=== PATIENT | female | born 1930 | race Caucasian/White ===

== ENCOUNTER 2017-11-17 22:56 | Observation (INO) ==
[2017-11-17] MEDS ORDERED: methylPREDNISolone 125 MG/2 ML VIAL IVP ONE (23:09)
[2017-11-17] MEDS ORDERED: Ipratropium/Albuterol Neb 3 ML IH ONE (23:09)
[2017-11-17 23:39] LABS: Basophils # 0.1 K/mcL (0.0-0.2); Basophils % 0.6 %; Eosinophils # 0.2 K/mcL (0.0-0.6); Eosinophils % 1.7 %; Hematocrit 39.5 % (35.3-44.9); Hemoglobin 12.6 g/dL (11.5-15.4); Immature Granulocytes % 0.4 % (0-4); Lymphocytes # 1.1 K/mcL (0.6-4.6); Lymphocytes % 9.7 %; Mean Corpuscular HGB Conc 31.9 g/dL (31.6-35.5); Mean Corpuscular Hemoglobin 30.3 pg (28.0-33.3); Mean Platelet Volume 11.8 fL (9.4-12.4); Monocytes # 0.4 K/mcL (0.0-1.3); Monocytes % 3.7 %; Platelet Count 152 K/mcL (140-400); Red Blood Count 4.16 M/mcL (3.82-4.97); Red Cell Distribution Width 14.1 % (11.5-14.5); Segmented Neutrophils % 83.9 %
[2017-11-17 23:46] LABS: Neutrophils # 9.7 K/mcL (1.6-8.9)
[2017-11-17] MEDS ORDERED: Furosemide 40 MG/4 ML VIAL IVP ONE (23:51)
[2017-11-17 23:58] LABS: BUN/Creatinine Ratio 13 (6-26); Blood Urea Nitrogen 20 mg/dL (8-23); Calcium 8.5 mg/dL (8.6-10.3); Carbon Dioxide 24 mEq/L (23-29); Chloride 101 mEq/L (98-107); Glucose 188 mg/dL (70-105); Osmolality,Calculated 286 (280-300); Potassium 3.8 mEq/L (3.5-5.1); Sodium 134 mEq/L (136-145); eGFR For African Americans 39 (> 60); eGFR For Non-African Americans 32 (> 60)
[2017-11-17 23:59] LABS: Troponin I < 0.03 ng/mL (< 0.04)
--- NOTE | 2017-11-18 | Emergency Department Note ---
Disposition Clinical Impression: Hypoxia Congestive heart failure Qualifiers: Heart failure type: unspecified Heart failure chronicity: acute on chronic Qualified Code(s): I50.9 - Heart failure, unspecified Disposition: Admitted As Inpatient Condition: Fair Referrals: Danyell Tang DO [Primary Care Provider] - Forms: ED Satisfaction Letter Time of Disposition: 00:06 SOB HPI - General Chief Complaint: ED Shortness of Breath/Dyspnea Stated Complaint: difficulty breathing Time Seen by Provider: 11/17/17 23:05 Source: patient, family, EMS Mode of arrival: EMS Limitations: no limitations Nursing Notes Reviewed: Yes Vital Signs Reviewed: Yes - History of Present Illness Pt Subjective Complaint: shortness of breath Onset (ago): hour(s) (Patient became acutely short of breath over the past couple of hours prior to arrival but does report some shortness of breath over the past 3-4 days that has been progressively worsening.) Context: other (Patient was seen here little more than a week ago for congestive heart failure and was given some Lasix and treated on an outpatient basis. She did better but then over the past couple of days started going back down hill again) Severity: severe Consistency/Duration: constant, gradually worsening Improves with: oxygen Worsens with: lying flat, exertion Known history of: congestive heart failure Associated symptoms: Denies: chest pain, fever Treatment prior to arrival: NIPPV - Related Data Home oxygen amount: 2 liters Home Medications Medication Instructions Recorded Confirmed Aspirin 81 mg PO DAILY 05/15/16 11/17/17 Carvedilol 3.125 mg PO BID 05/15/16 11/17/17 Furosemide [Lasix] 20 mg PO QPM 05/15/16 11/17/17 LORazepam [Ativan] 0.5 mg PO BID 05/15/16 11/17/17 Lisinopril [Zestril] 5 mg PO DAILY 05/15/16 11/17/17 Nitroglycerin [Nitrostat] 0.4 mg SL AD PRN 05/15/16 11/17/17 Potassium Chloride [K-Tab ER] 20 meq PO DAILY 05/15/16 11/17/17 Ranitidine HCl [Heartburn Relief] 150 mg PO BID 05/15/16 11/17/17 Simvastatin [Zocor] 20 mg PO DAILY 05/15/16 11/17/17 Buspirone HCl [Buspar] 10 mg PO DAILY 11/17/17 11/17/17 Previous Rx's Medication Instructions Recorded Clopidogrel Bisulfate [Plavix] 75 mg PO DAILY #0 06/18/17 Furosemide [Lasix] 40 mg PO DAILY #7 tablet 11/08/17 Allergies Allergy/AdvReac Type Severity Reaction Status Date / Time Penicillins [PCN] Allergy Hives Verified 11/17/17 23:14 Sulfa (Sulfonamide Allergy Hives Verified 11/17/17 23:14 Antibiotics) All systems ED: reviewed and negative except as stated. Constitutional: Denies: fever, chills ENT ED: Denies: ear pain, throat pain, congestion Cardiovascular: Reports: dyspnea on exertion, paroxysmal nocturnal dyspnea. Denies: chest pain, palpitations Respiratory: Reports: dyspnea, wheezes Gastrointestinal: Denies: abdominal pain, nausea, vomiting, diarrhea Genitourinary: Denies: urgency, dysuria, frequency Integumentary: Denies: rash Neurological: Denies: headache Past Medical History - Past Medical History Attestation: Yes The following information was validated with the patient. Source: patient, old records reviewed, obtained from family, nursing notes reviewed Medical history: Reports: CHF, COPD, coronary artery disease, CVA, dementia, diabetes, hyperlipidemia, hypertension, myocardial infarction, valvular heart disease Surgical history: Reports: appendectomy, cholecystectomy, hysterectomy, other Psychiatric history: Reports: anxiety, depression - Social History Smoking Status: Former smoker Smokeless Tobacco Status: No Alcohol use: Reports: none Drug use: Reports: none Physical Exam - General Limitations: no limitations General appearance: alert - Head Head exam: atraumatic, normocephalic, normal inspection - Eye Eye exam: Present: normal appearance, PERRL, EOMI. Absent: scleral icterus, conjunctival injection - ENT ENT exam: normal exam, normal oropharynx, mucous membranes moist, normal external ear exam - Neck Neck exam: Present: normal inspection, full ROM, trachea midline - Chest Chest inspection: Present: normal inspection, symmetric chest wall rise. Absent : tenderness - Respiratory Respiratory exam: Present: respiratory distress, other (Rales posteriorly on both sides) - Cardiovascular Cardiovascular exam: Present: regular rate, normal rhythm, normal heart sounds - Abdominal Exam Abdominal exam: Present: soft, Non-Tender - Extremities Exam Extremities exam: Present: normal inspection. Absent: pedal edema - Neurological Exam Neurological exam: Present: alert, oriented X3 - Psychiatric Psychiatric exam: Present: normal affect, normal mood - Skin Skin exam: Present: warm, dry. Absent: rash Course Course Narrative: Patient presents for shortness of breath. Apparently there was significant respiratory distress on route. EMS put her on BiPAP and brought her here. She is feeling better with the BiPAP. I started a short of breath workup on the patient. Chest x-ray shows a lot of pulmonary edema. She was seen here little over a week ago for the same thing and chest x-ray looks much worse. Lung sounds show rales posteriorly on both sides. Pulse ox is 90% on 3 L. Patient is having CHF with acute worsening over the past few hours. I gave her Lasix. She did not need to be admitted. They have requested to be transferred up to [place]. Once again the last back or go ahead and talk with the Transfer [facility]tr[facility] [place] to get the patient admitted up there. - Reevaluation(s) Reevaluation #1: Labs look okay except for mild elevation of creatinine and elevated BNP. We will call the transfer center to start arranging transfer. Time: 00:05 Reevaluation #2: [facility] has no telemetry beds. They will not have anything available till tomorrow afternoon. We can have the patient in the emergency department all that time so I will go ahead and admit her here and if she still needs to be transferred tomorrow afternoon and she can go to [facility]. I talked it over with the patient and the family and they are comfortable with that plan. I am paging our hospitalist now to get her admitted here. Time: 00:09 - Consultations Consultation #1: Dr. Pearson, hospitalist - I discussed the case with Dr. Pearson and explain the situation with regards to transfer to [facility]. He is comfortable having the patient here. We will continue diuresis her here and have her on the monitor here. Time: 00:11 Vital Signs Temperature 97.3 F L 11/17/17 23:00 Pulse Rate 96 11/17/17 23:00 Respiratory Rate 17 11/17/17 23:00 Blood Pressure 165/88 11/17/17 23:00 O2 Sat by Pulse Oximetry 88 11/17/17 23:00 Temperature 97.3 F L 11/17/17 23:00 Pulse Rate 74 11/17/17 23:29 Respiratory Rate 20 11/17/17 23:29 Blood Pressure 144/76 11/17/17 23:29 O2 Sat by Pulse Oximetry 97 11/17/17 23:29 Oxygen Delivery Oxygen Delivery Aerosol Mask Shortness of Breath/Dyspnea - Lab Data Lab results reviewed: Yes I reviewed the patient's lab results. Result diagrams: 11/17/17 23:28 11/17/17 23:28 Lab Results 11/17/17 11/17/17 11/17/17 Range/Units 23:28 23:28 23:28 WBC 11.5 H D (4.3-11.1) K/mcL RBC 4.16 (3.82-4.97) M/mcL Hgb 12.6 (11.5-15.4) g/dL Hct 39.5 (35.3-44.9) % MCV 95.0 (83.0-100.0) fL MCH 30.3 (28.0-33.3) pg MCHC 31.9 (31.6-35.5) g/dL RDW 14.1 (11.5-14.5) % Plt Count 152 (140-400) K/mcL MPV 11.8 (9.4-12.4) fL Immature Gran % 0.4 (0-4) % Seg Neutrophils % 83.9 % Lymphocytes % 9.7 % Monocytes % 3.7 % Eosinophils % 1.7 % Basophils % 0.6 % Neutrophils # 9.7 H (1.6-8.9) K/mcL Lymphocytes # 1.1 (0.6-4.6) K/mcL Monocytes # 0.4 (0.0-1.3) K/mcL Eosinophils # 0.2 (0.0-0.6) K/mcL Basophils # 0.1 (0.0-0.2) K/mcL Sodium 134 L (136-145) mEq/L Potassium 3.8 (3.5-5.1) mEq/L Chloride 101 (98-107) mEq/L Carbon Dioxide 24 (23-29) mEq/L BUN 20 (8-23) mg/dL Creatinine 1.52 H (0.60-1.20) mg/dL Est GFR ( Amer) 39 L (> 60) Est GFR (Non-Af Amer) 32 L (> 60) BUN/Creatinine Ratio 13 (6-26) Glucose 188 H (70-105) mg/dL Calculated Osmolality 286 (280-300) Lactic Acid 1.1 (0.5-2.2) mmol/L Calcium 8.5 L (8.6-10.3) mg/dL Troponin I < 0.03 (< 0.04) ng/mL B-Natriuretic Peptide (Less than 100) pg/mL 11/17/17 Range/Units 23:28 WBC (4.3-11.1) K/mcL RBC (3.82-4.97) M/mcL Hgb (11.5-15.4) g/dL Hct (35.3-44.9) % MCV (83.0-100.0) fL MCH (28.0-33.3) pg MCHC (31.6-35.5) g/dL RDW (11.5-14.5) % Plt Count (140-400) K/mcL MPV (9.4-12.4) fL Immature Gran % (0-4) % Seg Neutrophils % % Lymphocytes % % Monocytes % % Eosinophils % % Basophils % % Neutrophils # (1.6-8.9) K/mcL Lymphocytes # (0.6-4.6) K/mcL Monocytes # (0.0-1.3) K/mcL Eosinophils # (0.0-0.6) K/mcL Basophils # (0.0-0.2) K/mcL Sodium (136-145) mEq/L Potassium (3.5-5.1) mEq/L Chloride (98-107) mEq/L Carbon Dioxide (23-29) mEq/L BUN (8-23) mg/dL Creatinine (0.60-1.20) mg/dL Est GFR ( Amer) (> 60) Est GFR (Non-Af Amer) (> 60) BUN/Creatinine Ratio (6-26) Glucose (70-105) mg/dL Calculated Osmolality (280-300) Lactic Acid (0.5-2.2) mmol/L Calcium (8.6-10.3) mg/dL Troponin I (< 0.04) ng/mL B-Natriuretic Peptide 2099 H (Less than 100) pg/mL - Radiology Data Radiology results reviewed: Yes I reviewed the patient's radiology results. - EKG Data EKG attestation: Yes I reviewed and interpreted this EKG. EKG results narrative: Total EKG performed at 20 3:11 PM showed a sinus rhythm at a rate of 90. Left axis deviation. Slow R-wave progression across precordium. Right bundle branch block pattern. No obvious acute ischemic changes.
[2017-11-18] MEDS ORDERED: Furosemide 40 MG/4 ML VIAL IVP ONE ×2 (02:42→06:30)
[2017-11-18] MEDS ORDERED: Naloxone 0.4 MG/ML INJ IVP PRN (02:42)
[2017-11-18 07:28] LABS: Calcium 8.5 mg/dL (8.6-10.3); Potassium 3.7 mEq/L (3.5-5.1)
[2017-11-18] MEDS: Aspirin 81 MG TAB.CHEW PO SCH (10:01)
[2017-11-18] MEDS: Famotidine 20 MG TABLET PO SCH (10:01)
[2017-11-18] MEDS: *HR* LORazepam 0.5 MG TABLET PO SCH ×2 (10:01→21:36)
[2017-11-18] MEDS: Acetaminophen 325 MG TABLET PO PRN ×2 (10:51→23:02)
--- NOTE | 2017-11-18 12:29 | Internal Med History&Physical ---
Date of Encounter: 11/18/17 Time of Encounter: 11:40 Assessment and Plan (1) Congestive heart failure Current visit: Yes Status: Chronic She has been given IV Lasix and symptoms have lessened. Will continue present regimen and monitor BN peptide. Qualifiers: Heart failure type: systolic Heart failure chronicity: acute on chronic Qualified Code(s): I50.23 - Acute on chronic systolic (congestive) heart failure (2) Severe aortic stenosis Current visit: No Status: Chronic Continue present regimen. (3) Ischemic cardiomyopathy Current visit: No Status: Chronic Continue Coreg, aspirin, and lisinopril. (4) Weight loss Current visit: Yes Status: Acute We will check TSH and order CT of chest abdomen and pelvis. (5) History of goiter Current visit: Yes Status: Acute We will check TSH. (6) CKD (chronic kidney disease) stage 3, GFR 30-59 ml/min Current visit: Yes Status: Acute We will monitor renal indices. (7) Diabetes Current visit: No Status: Chronic Hemoglobin A1c was 5.8% on 08/22/2016. Qualifiers: Diabetes mellitus type: type 2 Diabetes mellitus senior living insulin use: without director long term care use Diabetes mellitus complication status: with kidney complications Diabetes mellitus complication detail: with chronic kidney disease Chronic kidney disease stage: stage 3 (moderate) Qualified Code(s): E11.22 - Type 2 diabetes mellitus with diabetic chronic kidney disease; N18.3 - Chronic kidney disease, stage 3 (moderate); N18.3 - Chronic kidney disease, stage 3 (moderate) (8) Dementia Current visit: Yes Status: Chronic Will order TSH and B12 level. Qualifiers: Dementia type: unspecified type Dementia behavioral disturbance: without behavioral disturbance Qualified Code(s): F03.90 - Unspecified dementia without behavioral disturbance Internal Medicine - H&P: HPI Chief complaint: Dyspnea Admitted From: Emergency Dept Plans for Post Hospital Care: Home History of present illness: Ms. Marvin is a 86 year old female who came to emergency room complaining of dyspnea which had worsened over the preceding hours. There was no chest pain associated. She was evaluated in emergency room and felt to have exacerbation of heart failure with right pleural effusion. She was admitted to [facility] floor for ongoing care needs. The patient has some dementia and is a limited historian. The history is obtained from her daughter and from available records. She has history of hypertension. She has known ASHD status post OK 2012 and had a ROBERT to left circumflex and 4 Gonzalo to LAD 2012 at [facility]. She has low gradient severe aortic stenosis with LVEF of 30% on TTE 09/20/2014 per cardiology consult note of 06/07. There was moderate aortic insufficiency. It was felt she was a poor surgical candidate so medical therapy was recommended. She reports dyspnea on significant exertion but not light exertion. She has not had DVT or pulmonary emboli. She states she feels significantly improved from admission at the present time. Past Med Surg Social Fam HX - Past Medical History Medical history: CHF, COPD, coronary artery disease, CVA, dementia, diabetes, hyperlipidemia, hypertension, myocardial infarction, valvular heart disease Psychiatric history: anxiety, depression - Past Surgical History Surgical History: appendectomy, cholecystectomy, hysterectomy, other - Social History Smoking Status: Never smoker Smokeless Tobacco Status: No Alcohol use: none Drug use: none - Family History Mother Living Status: Hx Family Cardiac Disorders: Yes Internal Medicine - H&P: Meds Aspirin 81 mg PO DAILY 05/15/16 [History] Carvedilol 3.125 mg PO BID 05/15/16 [History] Furosemide [Lasix] 20 mg PO QPM 05/15/16 [History] LORazepam [Ativan] 0.5 mg PO BID 05/15/16 [History] Lisinopril [Zestril] 5 mg PO DAILY 05/15/16 [History] Nitroglycerin [Nitrostat] 0.4 mg SL AD PRN 05/15/16 [History] Potassium Chloride [K-Tab ER] 20 meq PO DAILY 05/15/16 [History] Ranitidine HCl [Heartburn Relief] 150 mg PO BID 05/15/16 [History] Simvastatin [Zocor] 20 mg PO DAILY 05/15/16 [History] Clopidogrel Bisulfate [Plavix] 75 mg PO DAILY #0 06/18/17 [Rx] Furosemide [Lasix] 40 mg PO DAILY #7 tablet 11/08/17 [Rx] Buspirone HCl [Buspar] 10 mg PO DAILY 11/17/17 [History] 3 Allergy/AdvReac Type Severity Reaction Status Date / Time Penicillins [PCN] Allergy Hives Verified 11/17/17 23:14 Sulfa (Sulfonamide Allergy Hives Verified 11/17/17 23:14 Antibiotics) All Systems PM: A 10-system review of systems was performed and is negative for pertinent findings except as documented above in the HPI. Review of systems: Gen.: She has had weight loss from approximately 156 pounds 3 years ago to present weight of 115 pounds. This was unintentional. Her daughter attributes this to decreased food intake. Cardiovascular: As per history of present illness Respiratory: She smoked from age [age] up to one half pack per day. She has oxygen at home but uses it only prn dyspnea. She denies definite diagnosis of COPD. GI: She had abdominal abscess with a few inches of bowel resection 2007. Postoperatively she has had intermittent "upset stomach" with IBS symptoms. She has had diverticulitis in the past. She has had cholecystectomy. No known disorders of her liver or exocrine pancreas. : She has occasional UTIs. She has been diagnosed with chronic kidney disease. Neurologic: She has had numerous mini strokes and has a diagnosis of dementia. There have been no large distribution strokes or seizures. Endocrine: She has history of goiter resection several years ago with subtotal thyroidectomy. She does not take replacement Synthroid. She has history of DM 2 which did not require further treatment and essentially resolved with her significant weight loss. She has history of hyperlipidemia. Hematology/oncology: She denies blood disorders or cancers. She has history of anemia which has resolved. Psychiatric: She has anxiety and depression. [place] skeletal: She has DJD but no known gout or other bone joint or muscle disorders. - Constitutional Vitals: Temp Pulse Resp BP Pulse Ox 97.5 F L 60 16 118/57 96 11/18/17 11:20 11/18/17 11:20 11/18/17 11:20 11/18/17 11:20 11/18/17 11:20 Exam: Gen.: She is a well-developed well-nourished female who appears in no acute distress at present time HEENT: Head is atraumatic and normal cephalic. Eyes: EOMI. There is no scleral icterus. Mouth: Mucosa is moist. Neck: Supple and nontender. There is no thyromegaly or adenopathy noted. Heart: Regular with a 2 to 3/6 systolic murmur heard best at the base. S1 and S2 are soft. No ectopics are heard. Lungs: No wheezes or crackles are heard. Abdomen: Soft and nontender. No masses or guarding are noted. Extremities: There is no cyanosis edema or clubbing noted. Dorsalis pedis and posterior tibial pulses are trace to 1+ palpable bilaterally. Neurologic: Mental status: She is talkative and a good historian. Cranial nerves: Smile is symmetric. Forehead wrinkles bilaterally. Tongue protrudes midline. EOMI. Motor: There is no pronator drift. Cerebellar: Finger to nose is intact bilaterally. Skin: Warm and dry Internal Med - H&P Results - Labs CBC & Chem 7: 11/17/17 23:28 11/18/17 06:52 Labs: BMP 11/18/17 06:52 Sodium 137 Potassium 3.7 Chloride 104 Carbon Dioxide 24 BUN 25 H Creatinine 1.48 H Glucose 177 H Calcium 8.5 L Cardiac Enzymes 11/18/17 11/18/17 Range/Units 06:52 09:04 Troponin I 0.08 H* 0.08 H* (< 0.04) ng/mL
[2017-11-18 15:09] LABS: Magnesium 1.7 mg/dL (1.6-2.6)
[2017-11-18 16:51] LABS: Thyroid Stimulating Hormone 1.093 mcIU/mL (0.340-5.600)
[2017-11-18] MEDS: Isosorbide MONOnitrate (24 HR) 30 MG TAB.ER.24H PO SCH (18:32)
[2017-11-18] MEDS: Bumetanide 1 MG TABLET PO SCH (18:32)
[2017-11-19] MEDS: Bumetanide 1 MG TABLET PO SCH (05:50)
[2017-11-19 06:45] LABS: Basophils % 0.3 %; Eosinophils # 0.1 K/mcL (0.0-0.6); Eosinophils % 0.9 %; Hematocrit 32.9 % (35.3-44.9); Hemoglobin 10.8 g/dL (11.5-15.4); Immature Granulocytes % 0.3 % (0-4); Lymphocytes # 1.6 K/mcL (0.6-4.6); Lymphocytes % 15.9 %; Mean Corpuscular HGB Conc 32.8 g/dL (31.6-35.5); Mean Corpuscular Hemoglobin 30.3 pg (28.0-33.3); Mean Corpuscular Volume 92.4 fL (83.0-100.0); Mean Platelet Volume 11.7 fL (9.4-12.4); Monocytes # 0.6 K/mcL (0.0-1.3); Monocytes % 6.3 %; Neutrophils # 7.8 K/mcL (1.6-8.9); Platelet Count 138 K/mcL (140-400); Red Blood Count 3.56 M/mcL (3.82-4.97); Red Cell Distribution Width 13.9 % (11.5-14.5); Segmented Neutrophils % 76.3 %
[2017-11-19 07:05] LABS: Albumin 3.3 g/dL (3.5-5.7); Albumin/Globulin Ratio 1.3 (1.1-2.2); Bilirubin,Total 0.5 mg/dL (0.3-1.0); Calcium 8.1 mg/dL (8.6-10.3); Globulin 2.5 g/dL (2.4-3.5); Potassium 3.9 mEq/L (3.5-5.1); Total Protein 5.8 g/dL (6.4-8.9)
[2017-11-19] MEDS: Famotidine 20 MG TABLET PO SCH (08:17)
[2017-11-19] MEDS: Isosorbide MONOnitrate (24 HR) 30 MG TAB.ER.24H PO SCH (08:18)
[2017-11-19] MEDS: Aspirin 81 MG TAB.CHEW PO SCH (08:18)
[2017-11-19] MEDS: *HR* LORazepam 0.5 MG TABLET PO SCH ×2 (08:18→19:45)
--- NOTE | 2017-11-19 09:37 | Internal Med Progress Note ---
Date of Encounter: 11/19/17 Time of Encounter: 09:25 - Assessment and plan (1) Congestive heart failure Current Visit: Yes Status: Chronic Assessment and plan: November 19. Will continue Coreg, isosorbide and low-dose Bumex. Qualifiers: Heart failure type: systolic Heart failure chronicity: acute on chronic Qualified Code(s): I50.23 - Acute on chronic systolic (congestive) heart failure (2) Severe aortic stenosis Current Visit: No Status: Chronic Assessment and plan: November 19. Continue to monitor. (3) Ischemic cardiomyopathy Current Visit: No Status: Chronic Assessment and plan: November 19. As above (4) Weight loss Current Visit: Yes Status: Acute Assessment and plan: November 19. TSH was normal. CT of abdomen pelvis and chest showed no obvious acute pathology. (5) History of goiter Current Visit: Yes Status: Acute Assessment and plan: November 19. TSH was normal. (6) CKD (chronic kidney disease) stage 3, GFR 30-59 ml/min Current Visit: Yes Status: Acute Assessment and plan: November 19. We will decrease Bumex. Monitor renal indices. (7) Diabetes Current Visit: No Status: Chronic Assessment and plan: November 19. Hemoglobin A1c was 5.8% on 08/22/2016. Qualifiers: Diabetes mellitus type: type 2 Diabetes mellitus moth exterminator insulin use: without moth exterminator use Diabetes mellitus complication status: with kidney complications Diabetes mellitus complication detail: with chronic kidney disease Chronic kidney disease stage: stage 3 (moderate) Qualified Code(s): E11.22 - Type 2 diabetes mellitus with diabetic chronic kidney disease; N18.3 - Chronic kidney disease, stage 3 (moderate); N18.3 - Chronic kidney disease, stage 3 (moderate) (8) Dementia Current Visit: Yes Status: Chronic Assessment and plan: November 19. TSH and B12 level were normal. Qualifiers: Dementia type: unspecified type Dementia behavioral disturbance: without behavioral disturbance Qualified Code(s): F03.90 - Unspecified dementia without behavioral disturbance - Subjective Interval history: November 19. She has no new complaints and feels better overall. - Constitutional Vitals: Temp Pulse Resp BP Pulse Ox 97 F L 57 18 95/55 99 11/19/17 07:05 11/19/17 08:11 11/19/17 07:05 11/19/17 07:05 11/19/17 07:05 Exam: She is resting comfortably in a chair at bedside and appears in no acute distress. Her affect is bright and cheerful. I reviewed her medications. I reviewed her CT report and pertinent labs with patient and her daughter. Internal Medicine: Result - Labs CBC & Chem 7: 11/19/17 06:34 11/19/17 06:34 Labs: Short CBC 11/19/17 Range/Units 06:34 WBC 10.2 (4.3-11.1) K/mcL Hgb 10.8 L D (11.5-15.4) g/dL Hct 32.9 L (35.3-44.9) % Plt Count 138 L (140-400) K/mcL Neutrophils # 7.8 (1.6-8.9) K/mcL BMP 11/19/17 06:34 Sodium 136 Potassium 3.9 Chloride 103 Carbon Dioxide 24 BUN 41 H Creatinine 1.62 H Glucose 105 Calcium 8.1 L Cardiac Enzymes 11/18/17 11/18/17 11/18/17 Range/Units 09:04 14:44 20:27 Troponin I 0.08 H* 0.06 H* 0.06 H* (< 0.04) ng/mL Liver Function 11/19/17 Range/Units 06:34 Total Bilirubin 0.5 (0.3-1.0) mg/dL AST 17 (13-39) Units/L ALT 12 (7-52) Units/L Alkaline Phosphatase 85 (34-104) Units/L Albumin 3.3 L (3.5-5.7) g/dL - Impressions Impressions Abdomen/Pelvis CT 11/18/17 12:47 IMPRESSION: 1. Cardiomegaly and extensive coronary artery atherosclerotic disease. 2. Bilateral small pleural effusions and hazy ground-glass attenuation in the right lower lung dependent portion could be related to pulmonary edema. 3. Noncalcified 6 mm nonspecific superior segment left lower lobe nodule. Follow-up CT in 6-12 months recommended. 4. Fat containing umbilical hernia and left inguinal hernia. RECOMMENDATIONS: Fleischner Society guidelines for follow-up and management of incidentally detected pulmonary nodules: Single Solid Nodule: Nodule size equals 6-8 mm In a low-risk patient, CT at 6-12 months, then consider CT at 18-24 months. In a high-risk patient, CT at 6-12 months, then CT at 18-24 months. - Low risk patients include individuals with minimal or absent history of smoking and other known risk factors. - High risk patients include individuals with a history or smoking or known risk factors. Radiology 2017 http://pubs.rsna.org/doi/full/[email or web address] D/ / 11/18/2017 14:50:50 Adilson Barton MD / jas Interpreting Provider: Adilson Barton MD Chest CT 11/18/17 12:47 IMPRESSION: 1. Cardiomegaly and extensive coronary artery atherosclerotic disease. 2. Bilateral small pleural effusions and hazy ground-glass attenuation in the right lower lung dependent portion could be related to pulmonary edema. 3. Noncalcified 6 mm nonspecific superior segment left lower lobe nodule. Follow-up CT in 6-12 months recommended. 4. Fat containing umbilical hernia and left inguinal hernia. RECOMMENDATIONS: Fleischner Society guidelines for follow-up and management of incidentally detected pulmonary nodules: Single Solid Nodule: Nodule size equals 6-8 mm In a low-risk patient, CT at 6-12 months, then consider CT at 18-24 months. In a high-risk patient, CT at 6-12 months, then CT at 18-24 months. - Low risk patients include individuals with minimal or absent history of smoking and other known risk factors. - High risk patients include individuals with a history or smoking or known risk factors. Radiology 2017 http://pubs.rsna.org/doi/full/10.1148/[email or web address] D/ / 11/18/2017 14:50:50 Adilson Barton MD / jas Interpreting Provider: Adilson Barton MD Consult Discharge Plan - Plan Referrals: Danyell Tang DO [Primary Care Provider] - 1 week
[2017-11-20 07:04] LABS: Basophils # 0.1 K/mcL (0.0-0.2); Basophils % 0.8 %; Eosinophils # 0.2 K/mcL (0.0-0.6); Eosinophils % 2.9 %; Hematocrit 34.9 % (35.3-44.9); Hemoglobin 11.4 g/dL (11.5-15.4); Immature Granulocytes % 0.3 % (0-4); Lymphocytes % 13.1 %; Mean Corpuscular HGB Conc 32.7 g/dL (31.6-35.5); Mean Corpuscular Hemoglobin 30.2 pg (28.0-33.3); Mean Corpuscular Volume 92.3 fL (83.0-100.0); Mean Platelet Volume 11.6 fL (9.4-12.4); Monocytes # 0.6 K/mcL (0.0-1.3); Monocytes % 7.4 %; Neutrophils # 5.8 K/mcL (1.6-8.9); Platelet Count 132 K/mcL (140-400); Red Blood Count 3.78 M/mcL (3.82-4.97); Segmented Neutrophils % 75.5 %
[2017-11-20 07:36] LABS: Calcium 8.5 mg/dL (8.6-10.3); Potassium 3.6 mEq/L (3.5-5.1)
[2017-11-20 07:44] VITALS: BP 144/73
[2017-11-20] MEDS ORDERED: Bumetanide 1 MG TABLET PO SCH (09:00)
[2017-11-20] MEDS: Famotidine 20 MG TABLET PO SCH (09:22)
[2017-11-20] MEDS: Aspirin 81 MG TAB.CHEW PO SCH (09:24)
[2017-11-20] MEDS: Isosorbide MONOnitrate (24 HR) 30 MG TAB.ER.24H PO SCH (09:25)
[2017-11-20] MEDS: *HR* LORazepam 0.5 MG TABLET PO SCH (09:26)
--- NOTE | 2017-11-20 10:02 | Discharge Summary ---
Orders not resulted at time of discharge: Pending orders 11/20/17 06:53 Basic Metabolic Panel AM 0400 Ferritin AM 0400 Folate AM 0400 Iron Profile AM 0400 Date of Encounter: 11/20/17 Time of Encounter: 09:50 - Discharge Diagnosis (1) Congestive heart failure Priority: Primary Status: Chronic Qualifiers: Heart failure type: systolic Heart failure chronicity: acute on chronic Qualified Code(s): I50.23 - Acute on chronic systolic (congestive) heart failure (2) Severe aortic stenosis Priority: Secondary Status: Chronic (3) Ischemic cardiomyopathy Priority: Secondary Status: Chronic (4) Weight loss Priority: Secondary Status: Acute (5) History of goiter Priority: Secondary Status: Acute (6) CKD (chronic kidney disease) stage 3, GFR 30-59 ml/min Priority: Secondary Status: Chronic (7) Diabetes Priority: Secondary Status: Chronic Qualifiers: Diabetes mellitus type: type 2 Diabetes mellitus digital account director insulin use: without penitentiary use Diabetes mellitus complication status: with kidney complications Diabetes mellitus complication detail: with chronic kidney disease Chronic kidney disease stage: stage 3 (moderate) Qualified Code(s): E11.22 - Type 2 diabetes mellitus with diabetic chronic kidney disease; N18.3 - Chronic kidney disease, stage 3 (moderate); N18.3 - Chronic kidney disease, stage 3 (moderate) (8) Dementia Priority: Secondary Status: Chronic Qualifiers: Dementia type: unspecified type Dementia behavioral disturbance: without behavioral disturbance Qualified Code(s): F03.90 - Unspecified dementia without behavioral disturbance Hospital course: Ms. Marvin is a 86 year old female who came to emergency room complaining of dyspnea which had worsened over the preceding hours. There was no chest pain associated. She was evaluated in emergency room and felt to have exacerbation of heart failure with right pleural effusion. She was admitted to [facility] floor for ongoing care needs. Initial orders were written by the emergency room physician. I saw her on November 18 and performed the history and physical. She was given IV Lasix initially and was started on isosorbide. Her dyspnea gradually improved. BN peptide decreased from 2099 on admission to 1174 by day of discharge. She had slight rise in her troponin but I felt it was due to heart failure rather than non-STEMI. Creatinine remained stable at 1.47. She will continue with isosorbide and Bumex (replacing Lasix) at discharge. B12 and TSH returned normal at 473 and 1.093 respectively. Leukocytosis and left shift resolved spontaneously without intervention. On November 20 she felt stable for discharge home. She will follow with her PCP within 1 week. Home health services will be ordered. - Time Spent with Patient Total time spent providing and/or coordinating discharge services: - Discharge Medications Prescriptions: Bumetanide [Bumex] 1 mg PO DAILY #30 tablet Isosorbide MONOnitrate (24 HR) [Imdur] 30 mg PO DAILY #30 tab.er.24h Home Medications: Aspirin 81 mg PO DAILY 05/15/16 [History] Carvedilol 3.125 mg PO BID 05/15/16 [History] LORazepam [Ativan] 0.5 mg PO BID 05/15/16 [History] Lisinopril [Zestril] 5 mg PO DAILY 05/15/16 [History] Nitroglycerin [Nitrostat] 0.4 mg SL AD PRN 05/15/16 [History] Potassium Chloride [K-Tab ER] 20 meq PO DAILY 05/15/16 [History] Ranitidine HCl [Heartburn Relief] 150 mg PO BID 05/15/16 [History] Simvastatin [Zocor] 20 mg PO DAILY 05/15/16 [History] Clopidogrel Bisulfate [Plavix] 75 mg PO DAILY #0 06/18/17 [Rx] Buspirone HCl [Buspar] 10 mg PO DAILY 11/17/17 [History] Bumetanide [Bumex] 1 mg PO DAILY #30 tablet 11/20/17 [Rx] Isosorbide MONOnitrate (24 HR) [Imdur] 30 mg PO DAILY #30 tab.er.24h 11/20/17 [ Rx] Allergies/Adverse Reactions: 3 Allergy/AdvReac Type Severity Reaction Status Date / Time Penicillins [PCN] Allergy Hives Verified 11/17/17 23:14 Sulfa (Sulfonamide Allergy Hives Verified 11/17/17 23:14 Antibiotics) Date of admission: 11/18/17 02:14 Primary care physician: King Velazquez - Constitutional Vitals: Temp Pulse Resp BP Pulse Ox 97.5 F L 64 17 144/73 93 11/20/17 07:42 11/20/17 07:42 11/20/17 07:42 11/20/17 07:42 11/20/17 07:42 - Patient Status Disposition: Home Health Service Condition: Fair Functional capacity at discharge: uses cane/walker Overall status at discharge: patient is progressing back to baseline - Discharge Instructions Follow Up With: Danyell Tang DO [Primary Care Provider] - 1 week - Diet and Activity Activity: resume usual activities as tolerated Diet: advance to your usual diet
--- NOTE | 2017-11-20 10:23 | Physician Discharge Referral ---
Home Health/Hosp Referral Info Transfer to: Home Health Attending Provider: Michel Provider in Charge Post Discharge: PCP [place]) - Diagnosis (1) Congestive heart failure Priority: Primary Status: Chronic (2) Severe aortic stenosis Priority: Secondary Status: Chronic (3) Ischemic cardiomyopathy Priority: Secondary Status: Chronic (4) Weight loss Priority: Secondary Status: Acute (5) History of goiter Priority: Secondary Status: Acute (6) CKD (chronic kidney disease) stage 3, GFR 30-59 ml/min Priority: Secondary Status: Chronic (7) Diabetes Priority: Secondary Status: Chronic (8) Dementia Priority: Secondary Status: Chronic - Respiratory Orders Smoking Cessation: Smoking cessation has been advised. For more information, call the [place] Tobacco Quit Line at 3-266-GKDG-NOW. - Diet/Nutrition Diet/Nutrition Orders: No Concentrated Sweets - Activity Activity Orders: Walker - Services Needed Following services are medically necessary services: Nursing, Home Health Aide, Physical Therapy, Occupational Therapy - Transfer Medications Prescriptions: Bumetanide [Bumex] 1 mg PO DAILY #30 tablet Isosorbide MONOnitrate (24 HR) [Imdur] 30 mg PO DAILY #30 tab.er.24h Home Medications: Aspirin 81 mg PO DAILY 05/15/16 [History] Carvedilol 3.125 mg PO BID 05/15/16 [History] LORazepam [Ativan] 0.5 mg PO BID 05/15/16 [History] Lisinopril [Zestril] 5 mg PO DAILY 05/15/16 [History] Nitroglycerin [Nitrostat] 0.4 mg SL AD PRN 05/15/16 [History] Potassium Chloride [K-Tab ER] 20 meq PO DAILY 05/15/16 [History] Ranitidine HCl [Heartburn Relief] 150 mg PO BID 05/15/16 [History] Simvastatin [Zocor] 20 mg PO DAILY 05/15/16 [History] Clopidogrel Bisulfate [Plavix] 75 mg PO DAILY #0 06/18/17 [Rx] Buspirone HCl [Buspar] 10 mg PO DAILY 11/17/17 [History] Bumetanide [Bumex] 1 mg PO DAILY #30 tablet 11/20/17 [Rx] Isosorbide MONOnitrate (24 HR) [Imdur] 30 mg PO DAILY #30 tab.er.24h 11/20/17 [ Rx] Allergies/Adverse Reactions: 3 Allergy/AdvReac Type Severity Reaction Status Date / Time Penicillins [PCN] Allergy Hives Verified 11/17/17 23:14 Sulfa (Sulfonamide Allergy Hives Verified 11/17/17 23:14 Antibiotics) Certification: Further, I certify that my clinical findings support that this patient is homebound (i.e. absences from home require considerable and taxing effort and are for medical reasons or holiness services or infrequently or short duration when for other reasons) because: Homebound Reason: Leaving home requires considerable and taxing effort due to condition (Dyspnea on exertion, dementia) Attestation: My signature below is to certify that this patient is under my care and that I, or nurse practitioner, or a physician's events administrative assistant working with me, has a face-to -face encounter with this patient.
== END 2017-11-20 10:57 | disposition home health service (06) ==
LOC: INPPIK 22:56 → EMEROOPIK 22:56 → INPPIK 11-18 02:15
PROVIDERS: ADMIT Internal Medicine; ATTEND Internal Medicine